=== PATIENT | male | born 1955 | race Caucasian/White ===

== ENCOUNTER 2018-06-08 20:09 | Emergency (ER) | payer MEDICARE ==
[~2018-06-08 20:09] MED LIST: CARB200T PO; CARB200T4 PO; OLAN10TA9 PO; PROLIXIN PO; PROP20TA PO; PROP60CA8 PO; QUET200T PO; QUET200T4 PO
[2018-06-08 20:25] VITALS: BP 105/68
[2018-06-08] MEDS ORDERED: FLUP5TAB PO (20:33)
[2018-06-08 20:52] LABS: BASOPHILS # (AUTO) 0.03 x10^3/uL (0-0.1); BASOPHILS % (AUTO) 0 % (0-1); EOSINOPHILS # (AUTO) 0.04 x10^3/uL (0-0.4); EOSINOPHILS % (AUTO) 1 % (1-7); LYMPHOCYTES # (AUTO) 1.13 x10^3/uL (1-3.4); LYMPHOCYTES % (AUTO) 18 % (22-44); MD NO; MEAN CORPUSCULAR HEMOGLOBIN 30.6 pg (27.5-34.5); MEAN CORPUSCULAR HGB CONC 33.5 g/dL (33.2-36.2); MEAN CORPUSCULAR VOLUME 91.4 fL (81-97); MONOCYTES # (AUTO) 0.61 x10^3/uL (0.2-0.8); MONOCYTES % (AUTO) 10 % (2-9); NEUTROPHILS # (AUTO) 4.64 x10^3/uL (1.8-6.8); NEUTROPHILS % (AUTO) 72 % (42-75); PLATELET COUNT 409 x10^3/uL (130-400); RED BLOOD COUNT 4.33 x10^6/uL (4.38-5.82); RED CELL DISTRIBUTION WIDTH 13.4 % (9.4-14.8)
[2018-06-08 21:05] LABS: ALBUMIN 3.8 g/dL (3.4-5.0); ANION GAP 9 mmol/L (5-15); CALCIUM 8.9 mg/dL (8.5-10.1); CHLORIDE 100 mmol/L (98-107); CREATININE 1.03 mg/dL (0.7-1.3)
[2018-06-08 21:06] LABS: AMPHETAMINE SCREEN, URINE Negative (Negative); BARBITURATE SCREEN, URINE Negative (Negative); BENZODIAZEPINE SCREEN, URINE Negative (Negative); CANNABINOID SCREEN, URINE Negative (Negative); COCAINE SCREEN, URINE Negative (Negative); METHADONE SCREEN, URINE Negative (Negative); OPIATE SCREEN, URINE Negative (Negative)
[2018-06-08 21:07] LABS: SALICYLATE LEVEL < 1.7 mg/dL (2.8-20.0)
[2018-06-08 21:09] LABS: ACETAMINOPHEN < 2 mcg/mL (10-30)
== END 2018-06-08 21:25 | disposition home or self-care (01) ==
LOC: ED 20:31
DX: F41.1 Generalized anxiety disorder (principal); Z72.9 Problem related to lifestyle, unspecified; I10 Essential (primary) hypertension; Z79.899 Other long term (current) drug therapy
CPT/HCPCS: 36415; 80048; 80307; 80329; 82040; 85025; 99284; G0480

== ENCOUNTER 2020-11-03 08:55 | Emergency (ER) | payer MEDICARE ==
[~2020-11-03] VITALS: Ht 170.2 cm; Wt 81.1 kg
[~2020-11-03 08:55] MED LIST changes: +FLUP5TAB3 PO; +PROP60CA36 PO; -PROP60CA8 PO
[2020-11-03 08:58] VITALS: BP 177/71
--- NOTE | 2020-11-03 09:06 | NUR ---
Patient given discharge instructions and Rx, they have confirmed that they understand the instructions. Patient ambulatory with steady gait.
== END 2020-11-03 09:11 | disposition home or self-care (01) ==
LOC: ED 09:05
DX: L20.89 Other atopic dermatitis (principal)
CPT/HCPCS: 99283

== ENCOUNTER 2021-04-23 20:11 | Emergency (ER) | payer MEDICARE ==
[~2021-04-23] VITALS: Ht 177.8 cm; Wt 79.0 kg
[2021-04-23 22:25] VITALS: BP 184/80
[2021-04-23 23:00] LABS: BASOPHILS % (AUTO) 1 % (0-1); EOSINOPHILS % (AUTO) 2 % (1-7); LYMPHOCYTES % (AUTO) 27 % (22-44); MEAN CORPUSCULAR HGB CONC 34.1 g/dL (33.2-36.2); MEAN PLATELET VOLUME 6.8 fL (7.4-10.4); MONOCYTES % (AUTO) 10 % (2-9); NEUTROPHILS % (AUTO) 60 % (42-75); PLATELET COUNT 413 x10^3/uL (130-400); RED BLOOD COUNT 4.22 x10^6/uL (4.38-5.82); RED CELL DISTRIBUTION WIDTH 13.6 % (9.4-14.8)
[2021-04-23 23:04] LABS: MD NO
[2021-04-23 23:11] LABS: ANION GAP 9 mmol/L (5-15); CALCIUM 8.6 mg/dL (8.5-10.1); CHLORIDE 98 mmol/L (98-107)
[2021-04-23 23:16] LABS: ALANINE AMINOTRANSFERASE 26 U/L (12-78); ALKALINE PHOSPHATASE 85 U/L (45-117); BILIRUBIN,TOTAL 0.4 mg/dL (0.2-1.0); CREATININE 0.67 mg/dL (0.7-1.3)
--- NOTE | 2021-04-24 01:55 | NUR ---
NA X 1
--- NOTE | 2021-04-24 02:04 | NUR ---
NA X2
== END 2021-04-24 02:36 | disposition left against medical advice (07) ==
LOC: ED 20:30
DX: G47.00 Insomnia, unspecified (principal); R51.9 Headache, unspecified; R94.31 Abnormal electrocardiogram [ECG] [EKG]
CPT/HCPCS: 36415; 80053; 85025; 93005; 99284